=== PATIENT | male | born 1950 | race Two or more races ===

== ENCOUNTER 2019-03-01 13:42 | Emergency (ER) | payer MEDICARE, BC ==
[~2019-03-01] VITALS: Ht 170.2 cm; Wt 82.6 kg
[2019-03-01] MEDS ORDERED: BUPIVACAINE MPF 0.5% 30 ML VIAL. INJ STA (14:04)
[2019-03-01 14:07] VITALS: BP 121/79
--- NOTE | 2019-03-01 14:07 | PHYS DOC ---
Adult General Chief Complaint Chief Complaint: LACERATION/AVULSION HPI HPI Patient is a 69 year old male that presents after cutting his fifth digit on his left hand around 1:00 PM with a machine zipper trimmer. He has a laceration to the tip of his fifth digit. Rates his pain as 3 out of 10 in severity and sharp. Review of Systems Review of Systems Constitutional: Denies fever or chills [] Eyes: Denies change in visual acuity, redness, or eye pain [] HENT: Denies nasal congestion or sore throat [] Respiratory: Denies cough or shortness of breath [] Cardiovascular: No additional information not addressed in HPI [] GI: Denies abdominal pain, nausea, vomiting, bloody stools or diarrhea [] : Denies dysuria or hematuria [] Musculoskeletal: Denies back pain or joint pain [] Integument: Reports laceration to L 5th digit. Neurologic: Denies headache, focal weakness or sensory changes [] Endocrine: Denies polyuria or polydipsia [] Complete systems were reviewed and found to be within normal limits, except as documented in this note. Current Medications Current Medications Current Medications Medications (Trade) Dose Ordered Sig/Aniya Start Time Stop Time Status Last Admin Dose Admin Bupivacaine HCl (Sensorcaine Mpf 0.5%) 30 ml 1X STAT 03/01/19 14:04 03/01/19 14:12 DC Diphtheria/ Tetanus/Acell Pertussis (Boostrix) 0.5 ml ONCE ONCE 03/01/19 16:30 03/01/19 16:31 DC Neomycin/ Polymyxin/ Bacitracin (Triple Antibiotic Ointment) 1 pkt 1X STAT 03/01/19 16:32 03/01/19 16:33 DC Allergies Allergies Allergies Coded Allergies Type Severity Reaction Last Updated Verified No Known Drug Allergies 03/01/19 No Physical Exam Physical Exam Constitutional: Well developed, well nourished, no acute distress, non-toxic appearance. [] HENT: Normocephalic, atraumatic, bilateral external ears normal, oropharynx moist, no oral exudates, nose normal. [] Eyes: PERRLA, EOMI, conjunctiva normal, no discharge. [] Neck: Normal range of motion, no tenderness, supple, no stridor. [] Cardiovascular:Heart rate regular rhythm, no murmur [] Lungs & Thorax: Bilateral breath sounds clear to auscultation [] Abdomen: Bowel sounds normal, soft, no tenderness, no masses, no pulsatile masses. [] Skin: Laceration to left 5th digit that is a flap and has nail bed involvement. Back: No tenderness, no CVA tenderness. [] Extremities: No tenderness, no cyanosis, no clubbing, ROM intact, no edema. [] Neurologic: Alert and oriented X 3, normal motor function, normal sensory function, no focal deficits noted. [] Psychologic: Affect normal, judgement normal, mood normal. [] Current Patient Data Vital Signs Vital Signs Date Time Temp Pulse Resp B/P (MAP) Pulse Ox O2 Delivery O2 Flow Rate FiO2 03/01/19 14:07 98.2 108 20 121/79 (93) 95 Room Air 98.2 Lab Values Laboratory Tests Test 03/01/19 15:15 Glucose (Fingerstick) 188 mg/dL (70-99) H EKG EKG [] Radiology/Procedures Radiology/Procedures [][facility] [address] [place] [address] IMAGING REPORT Signed PATIENT: IESHA SANDERSON ACCOUNT: [id number] : 1950 LOCATION: ER AGE: 69 SEX: M EXAM STATUS: REG ER ORD. PHYSICIAN: BARRY CHAND APRN REASON: cut 5th digit with hedgetrimmer PROCEDURE: HAND LEFT 3V EXAM: Left hand, 3 views. HISTORY: Laceration. COMPARISON: None. FINDINGS: 3 views left hand are obtained. There is a comminuted fracture involving the tuft of the fifth distal phalanx with overlying soft tissue defect due to a laceration injury. No radiodense foreign body is seen. There are vascular calcifications. There is minimal spurring involving the first interphalangeal joint. IMPRESSION: Comminuted fracture of the distal tuft of the fifth distal cephalic with associated surrounding soft tissue laceration. Electronically signed by: Yodit Garcia MD (03/01/2019 2:21 PM) [facility] DICTATED and SIGNED BY: YODIT GARCIA MD DATE: 03/01/19 1423 Impressions: Indication: [] Procedure: The patient was placed in the appropriate position and anesthesia around the digital block using Buprivicaine to the 5th digit left hand. The area was then debrided with 500 mL of NS. The laceration was closed with 8 4-0 ethilon sutures. The wound area was then dressed with neosporin and splint. Total repaired wound length: 1.5 cm. Complications: Due to the trauma the finger did not completely approximate tog ether Course & Med Decision Making Course & Med Decision Making Pertinent Labs and Imaging studies reviewed. (See chart for details) Will get x-ray. X-ray showed Tuft fracture. Discussed with Dr. Vidal who agrees to see the patient in a week. Will suture the finger and give Tetanus. Will place on Augmentin. Dragon Disclaimer Dragon Disclaimer This electronic medical record was generated, in whole or in part, using a voice recognition dictation system. Departure Departure Impression: Primary Impression: Open fracture of tuft of distal phalanx of finger Additional Impression: Laceration Disposition: 01 HOME, SELF-CARE Condition: STABLE Referrals: MESSI WESLEY MD (PCP) ISAIAS VIDAL MD Patient Instructions: Finger Fracture (Phalangeal)-SportsMed, Fingertip Laceration, Laceration Care, Adult Additional Instructions: Thank you for visiting [facility]. We appreciate you trusting us with your care. If any additional problems come up don't hesitate to return to visit us. Please follow up with your primary care provider so they can plan additional care if needed and know about the problem that you had. If symptoms worsen come back to the Emergency Department. Any concerning symptoms that start such as chest pain, shortness of air, weakness or numbness on one side of the body, running high fevers or any other concerning symptoms return to the ER. Please be aware that diabetes can cause your sugars to fluctuate while you are sick. This can cause additional issues. Please check your sugars often to ensure they are staying in a safe range and if you are on insulin please take as instructed by your primary care doctor. If you have any questions about this please let us know or contact your primary care provider for additional in struction about taking your insulin while you are sick. If you get concerned regarding your sugar while at home please do not hesitate to come back to the ER. Please keep your wound dry, especially for the first 24 hours. After the first 24 hours you can wet the wound for a short time. Do not soak the wound or swim until the sutures have been removed. Please have the sutures removed in 7 days by your primary care doctor or return to ER for removal. Please keep the wound clean and change your bandage at least twice per day. You can use Neosporin on the wound to help reduce the chance of infection. If you notice signs of infection such as drainage from the wound (Pus), redness, increased pain or swelling return to ER for treatment. Please follow up with Dr. Vidal in a week. You have been prescribed an antibiotic today to help fight your infection. Please take all of the antibiotic as directed. If after 48 hours the infection is not improving, please return for more care. If the infection worsens, return to ER for additional care. Please fill your medications at any pharmacy and follow the prescription instructions. Scripts Hydrocodone/Apap 5-325 (NORCO 5-325 TABLET) 1 Each Tablet 1 TAB PO PRN Q6HRS PRN for PAIN for 3 Days, #10 TAB 0 Refills Prov: BARRY CHAND APRN 03/01/19 Amoxicillin/Potassium Clav (AUGMENTIN 875-125 TABLET) 1 Each Tablet 1 TAB PO BID for 7 Days, #14 TAB 0 Refills Prov: BARRY CHAND APRN 03/01/19 Problem Qualifiers BARRY CHAND APRN Mar 01, 2019 14:07
--- NOTE | 2019-03-01 14:23 | RAD ---
EXAM: Left hand, 3 views. HISTORY: Laceration. COMPARISON: None. FINDINGS: 3 views left hand are obtained. There is a comminuted fracture involving the tuft of the fifth distal phalanx with overlying soft tissue defect due to a laceration injury. No radiodense foreign body is seen. There are vascular calcifications. There is minimal spurring involving the first interphalangeal joint. IMPRESSION: Comminuted fracture of the distal tuft of the fifth distal cephalic with associated surrounding soft tissue laceration. Electronically signed by: Yodit Alex MD (03/01/2019 2:21 PM) [place] [id number]
[2019-03-01] MEDS ORDERED: DIPHTH,PERTUSS(ACELL),TET TOX 0.5 ML DISP.SYRIN. VAX IM ONE (16:30)
[2019-03-01] MEDS ORDERED: NEOMY/BACITR/POLYMYXIN OINT PACKET. TP STA (16:32)
[2019-03-01] MEDS ORDERED: HYDR-3164 PO (16:51)
[2019-03-01] MEDS ORDERED: AMOX1TAB61 PO (16:51)
== END 2019-03-01 17:13 | disposition home or self-care (01) ==
LOC: ER 13:42
DX: S62.637B Displaced fracture of distal phalanx of left little finger, initial encounter for open fracture (principal); W26.8XXA Contact with other sharp object(s), not elsewhere classified, initial encounter; Y93.89 Activity, other specified; Y92.89 Other specified places as the place of occurrence of the external cause; Y99.8 Other external cause status
CPT/HCPCS: 29130; 73130; 82962; 90471; 90715; 99285; J3490; 12001; 99284

== ENCOUNTER 2020-08-29 02:18 | Observation (INO) | payer MEDICARE, BC ==
[~2020-08-29] VITALS: Ht 170.2 cm; Wt 104.7 kg
[~2020-08-29 02:18] MED LIST: AMOX1TAB61 PO; HYDR-3164 PO
--- NOTE | 2020-08-29 02:39 | EKG ---
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
[2020-08-29 03:00] LABS: BASO # 0.1 x10^3/uL (0.0-0.2); BASO % 1 % (0-3); EOS # 0.2 x10^3/uL (0.0-0.7); EOS % 2 % (0-3); HEMATOCRIT 40.6 % (39.0-53.0); LYMPH # 2.7 x10^3/uL (1.0-4.8); LYMPH % 30 % (24-48); MEAN CORPUSCULAR HEMOGLOBIN 28 pg (25-35); MEAN CORPUSCULAR HGB CONC 34 g/dL (31-37); MEAN CORPUSCULAR VOLUME 82 fL (79-100); MONO # 0.8 x10^3/uL (0.0-1.1); MONO % 9 % (0-9); NEUT # 5.2 x10^3/uL (1.8-7.7); NEUT % 58 % (31-73); PLATELET COUNT 277 x10^3/uL (140-400); RED BLOOD COUNT 4.94 x10^6/uL (4.30-5.70); RED CELL DISTRIBUTION WIDTH 14.4 % (11.5-14.5)
[2020-08-29 03:12] LABS: CREATININE 1.4 mg/dL (0.7-1.3); GFR 49.8; POTASSIUM 4.2 mmol/L (3.5-5.1)
[2020-08-29 03:17] LABS: ALBUMIN 3.6 g/dL (3.4-5.0); ALBUMIN/GLOBULIN RATIO 1.1 (1.0-1.7); MAGNESIUM 1.7 mg/dL (1.8-2.4); TOTAL BILIRUBIN 0.4 mg/dL (0.2-1.0); TOTAL PROTEIN 6.9 g/dL (6.4-8.2)
[2020-08-29] MEDS ORDERED: MAGNESIUM SULFATE 1GM 100 ML IV ONE (03:30)
--- NOTE | 2020-08-29 04:26 | RAD ---
INDICATION: Reason: CHEST PAIN / Spl. Instructions: / History: COMPARISON: None. FINDINGS: Single view of chest obtained. Cardiac silhouette is unremarkable. No definite focal airspace consolidation. Degenerative changes sp ine. IMPRESSION: * No focal airspace consolidation or edema. Electronically signed by: Parth Pollock MD (08/29/2020 4:23 AM) [id number]
[2020-08-29] MEDS ORDERED: ONDANSETRON PF 4 MG/2 ML VIAL. IV PRN ×2 (04:45→11:45)
[2020-08-29] MEDS ORDERED: ASPIRIN 325 MG TABLET PO ONE (04:45)
--- NOTE | 2020-08-29 04:52 | PHYS DOC ---
Past Medical History Past Medical History: Diabetes-Type II, Diverticulitis, High Cholesterol, Hypertension Past Surgical History: No Surgical History Smoking Status: Never Smoker Alcohol Use: None General Adult EDM: Chief Complaint: CHEST PAIN HPI: HPI: Patient is a 70 year old male who presented to ER due to substernal chest pain off and on for 3 days. Patient denies any nausea vomiting, no cough, no fever. Patient denies any trouble breathing. Patient has history of hypertension and diabetic. Patient denies any history of coronary ARTERY disease. Patient could not sleep tonight due to the chest pain so he came in here for evaluation. Patient denied COVID-19 infection. Patient had Covid vaccines Already. Review of Systems: Review of Systems: Constitutional: Denies fever or chills. [] Eyes: Denies change in visual acuity. [] HENT: Denies nasal congestion or sore throat. [] Respiratory: Denies cough or shortness of breath. [] Cardiovascular: Positive chest pain, no edema GI: Denies abdominal pain, nausea, vomiting, bloody stools or diarrhea. [] : Denies dysuria. [] Musculoskeletal: Denies back pain or joint pain. [] Integument: Denies rash. [] Neurologic: Denies headache, focal weakness or sensory changes. [] Endocrine: Denies polyuria or polydipsia. [] Lymphatic: Denies swollen glands. [] Psychiatric: Denies depression or anxiety. [] Heart Score: C/O Chest Pain: Yes HEART Score for Chest Pain: HEART Score for Chest Pain Response (Comments) Value History Moderately Suspicious 1 ECG Normal 0 Age > 65 2 Risk Factors 1 or 2 Risk Factors 1 Troponin < Normal Limit 0 Total 4 Risk Factors: Risk Factors: DM, Current or recent (<one month) smoker, HTN, HLP, family history of CAD, obesity. Risk Scores: Score 0 - 3: 2.5% MACE over next 6 weeks - Discharge Home Score 4 - 6: 20.3% MACE over next 6 weeks - Admit for Clinical Observation Score 7 - 10: 72.7% MACE over next 6 weeks - Early Invasive Strategies Current Medications: Current Medications Medications (Trade) Dose Ordered Sig/Aniya Start Time Stop Time Status Last Admin Dose Admin Aspirin (Fei Aspirin) 325 mg 1X ONCE 08/29/20 04:45 08/29/20 04:48 DC Magnesium Sulfate/ Dextrose 100 ml @ 100 mls/hr 1X ONCE 08/29/20 03:30 08/29/20 04:29 DC 08/29/20 04:18 100 MLS/HR Ondansetron HCl (Zofran) 4 mg PRN Q8HRS PRN 08/29/20 04:45 08/30/20 04:44 Allergies: Allergies: Allergies Coded Allergies Type Severity Reaction Last Updated Verified No Known Drug Allergies 03/01/19 No Physical Exam: PE: Constitutional: Well developed, well nourished, no acute distress, non-toxic appearance. [] HENT: Normocephalic, atraumatic, bilateral external ears normal, oropharynx moist, no oral exudates, nose normal. [] Eyes: PERRLA, EOMI, conjunctiva normal, no discharge. [] Neck: Normal range of motion, no tenderness, supple, no stridor. [] Cardiovascular:Heart rate regular rhythm, no murmur [] Lungs & Thorax: Bilateral breath sounds clear to auscultation [] Abdomen: Bowel sounds normal, soft, no tenderness, no masses, no pulsatile masses. [] Skin: Warm, dry, no erythema, no rash. [] Back: No tenderness, no CVA tenderness. [] Extremities: No tenderness, no cyanosis, no clubbing, ROM intact, no edema. [] Neurologic: Alert and oriented X 3, normal motor function, normal sensory function, no focal deficits noted. [] Psychologic: Affect normal, judgement normal, mood normal. [] Current Patient Data: Labs: Laboratory Tests Test 08/29/20 02:50 White Blood Count 9.0 x10^3/uL (4.0-11.0) Red Blood Count 4.94 x10^6/uL (4.30-5.70) Hemoglobin 14.0 g/dL (13.0-17.5) Hematocrit 40.6 % (39.0-53.0) Mean Corpuscular Volume 82 fL (79-100) Mean Corpuscular Hemoglobin 28 pg (25-35) Mean Corpuscular Hemoglobin Concent 34 g/dL (31-37) Red Cell Distribution Width 14.4 % (11.5-14.5) Platelet Count 277 x10^3/uL (140-400) Neutrophils (%) (Auto) 58 % (31-73) Lymphocytes (%) (Auto) 30 % (24-48) Monocytes (%) (Auto) 9 % (0-9) Eosinophils (%) (Auto) 2 % (0-3) Basophils (%) (Auto) 1 % (0-3) Neutrophils # (Auto) 5.2 x10^3/uL (1.8-7.7) Lymphocytes # (Auto) 2.7 x10^3/uL (1.0-4.8) Monocytes # (Auto) 0.8 x10^3/uL (0.0-1.1) Eosinophils # (Auto) 0.2 x10^3/uL (0.0-0.7) Basophils # (Auto) 0.1 x10^3/uL (0.0-0.2) Sodium Level 143 mmol/L (136-145) Potassium Level 4.2 mmol/L (3.5-5.1) Chloride Level 105 mmol/L (98-107) Carbon Dioxide Level 29 mmol/L (21-32) Anion Gap 9 (6-14) Blood Urea Nitrogen 13 mg/dL (8-26) Creatinine 1.4 mg/dL (0.7-1.3) H Estimated GFR (Cockcroft-Gault) 49.8 BUN/Creatinine Ratio 9 (6-20) Glucose Level 204 mg/dL (70-99) H Calcium Level 9.0 mg/dL (8.5-10.1) Magnesium Level 1.7 mg/dL (1.8-2.4) L Total Bilirubin 0.4 mg/dL (0.2-1.0) Aspartate Amino Transferase (AST) 17 U/L (15-37) Alanine Aminotransferase (ALT) 30 U/L (16-63) Alkaline Phosphatase 62 U/L (46-116) Troponin I Quantitative < 0.017 ng/mL (0.000-0.055) YV-Rbi-Y-Type Natriuretic Peptide 16 pg/mL (0-124) Total Protein 6.9 g/dL (6.4-8.2) Albumin 3.6 g/dL (3.4-5.0) Albumin/Globulin Ratio 1.1 (1.0-1.7) Lipase 237 U/L (73-393) Laboratory Tests 08/29/20 02:50 Laboratory Tests 08/29/20 02:50 Vital Signs: Vital Signs Date Time Temp Pulse Resp B/P (MAP) Pulse Ox O2 Delivery O2 Flow Rate FiO2 08/29/20 04:28 90 121/78 (92) 97 Room Air 08/29/20 02:20 99.1 20 99.1 EKG: EKG: EKG was done at 228, heart rate 111 bpm, sinus tachycardia, normal axis, no ST segment elevation. Radiology/Procedures: Radiology/Procedures: [][facility] [address] [place] [address] IMAGING REPORT Signed PATIENT: IESHA SANDERSON ACCOUNT: [id number] : 1950 LOCATION: ER AGE: 70 SEX: M EXAM STATUS: REG ER ORD. PHYSICIAN: DENA MASSEY DO REASON: CHEST PAIN PROCEDURE: PORTABLE CHEST 1V INDICATION: Reason: CHEST PAIN / Spl. Instructions: / History: COMPARISON: None. FINDINGS: Single view of chest obtained. Cardiac silhouette is unremarkable. No definite focal airspace consolidation. Degenerative changes spine. IMPRESSION: * No focal airspace consolidation or edema. Electronically signed by: Dominguez Cottrell MD (08/29/2020 4:23 AM) [id number] DICTATED and SIGNED BY: DOMINGUEZ COTTRELL MD DATE: 08/29/20 [id number] 0 Course & Med Decision Making: Course & Med Decision Making Pertinent Labs and Imaging studies reviewed. (See chart for details) Patient is a 70-year-old male who present to ER due to substernal chest pain, EKG and cardiac enzymes normal so far, will admit him to hospital for observation. Discussed with Dr. Stokes who agrees to admit the patient. Dragon Disclaimer: Dragon Disclaimer: This electronic medical record was generated, in whole or in part, using a voice recognition dictation system. Departure Departure Impression: Primary Impression: Chest pain Additional Impression: Hypomagnesemia syndrome Disposition: ADMITTED INPATIENT Admitting Physician: TIAS (DR. STOKES) Condition: STABLE Referrals: MESSI WESLEY MD (PCP) DENA MASSEY DO August 29, 2020 04:52
[2020-08-29] MEDS ORDERED: GLIM4TAB8 PO (05:44)
[2020-08-29] MEDS ORDERED: METF10007 PO (05:44)
[2020-08-29] MEDS ORDERED: MELA10TA7 PO (05:45)
[2020-08-29] MEDS ORDERED: ATOR20TA58 PO (05:45)
--- NOTE | 2020-08-29 06:48 | EKG ---
[facility] [address] [place] [address] Test Date: 2020-08-29 Test Time: 04:06:12 Pat Name: IESHA SANDERSON Department: Room: Gender: Small Engine Mechanic: : 1950 Requested By: DENA MASSEY Order Number: [id number] Reading MD: Measurements Intervals [place] Rate: 91 P: 36 WV: 138 QRS: -4 QRSD: 82 T: 35 QT: 326 QTc: 402 Interpretive Statements SINUS RHYTHM LEFTWARD AXIS OTHERWISE NORMAL ECG RI6.02 No previous ECG available for comparison
[2020-08-29 07:00] VITALS: BP 148/76
--- NOTE | 2020-08-29 08:56 | PDOC1 ---
History and Physical Date of Admission Date of Admission DATE: 08/29/20 TIME: 08:55 Identification/Chief Complaint Chief Complaint chest pain, persistent x 3 days History of Present Illness History of Present Illness 70 year old male who presented to ER due to substernal chest pain off and on for 3 days. Patient denies any nausea vomiting, no cough, no fever. denies trouble breathing. has history of hypertension and diabetes denies any history of coronary disease. Patient could not sleep due to the chest pain so he came to ER . had Covid vaccines x2 ECHO pending. His last stress test was decades ago. No hx of CAD, VTE. No hx of arrhythmias troponin neg x 3 CR 1.4 DENIES exertional chest pain, but is not very physically active Past Medical History Past Medical History Past Medical History: Diabetes-Type II, Diverticulitis, High Cholesterol, Hypertension Past Surgical History: No Surgical History Smoking Status: Never Smoker Alcohol Use: None FHX OBESITY Cardiovascular: HTN, Hyperlipidemia Endocrine: Diabetes Family History Family History: High Cholestrol, Hypertension Social History Smoke: Quit ALCOHOL: none Drugs: None Current Problem List Problem List Problems Medical Problems: (1) Chest pain Status: Acute (2) Hypomagnesemia syndrome Status: Acute Current Medications Current Medications Current Medications Magnesium Sulfate/ Dextrose 100 ml @ 100 mls/hr 1X ONCE IV Last administered on 08/29/20at 04:18; Start 08/29/20 at 03:30; Stop 08/29/20 at 04:29; Status DC Aspirin (Fei Aspirin) 325 mg 1X ONCE PO Last administered on 08/29/20at 04:53; Start 08/29/20 at 04:45; Stop 08/29/20 at 04:48; Status DC Ondansetron HCl (Zofran) 4 mg PRN Q8HRS PRN IV NAUSEA/VOMITING; Start 08/29/20 at 04:45; Stop 08/30/20 at 04:44 Active Scripts Active Reported Melatonin 10 Mg Tab.rapdis 1 Tab PO QHS 30 Days Atorvastatin Calcium 20 Mg Tablet 20 Mg PO HS Glimepiride 4 Mg Tablet 1 Tab PO DAILY Metformin Hcl 1,000 Mg Tablet 1,000 Mg PO BIDWMEALS Allergies Allergies: Coded Allergies: No Known Drug Allergies (Unverified , 03/01/19) ROS Review of System 14 pt ros otherwise neg General: No: Chills, Night Sweats, Fatigue, Malaise, Appetite, Other PSYCHOLOGICAL ROS: No: Anxiety, Behavioral Disorder, Concentration difficultie, Decreased libido, Depression, Disorientation, Hallucinations, Hostility, Irritablity, Memory difficulties, Mood Swings, Obsessive thoughts, Physical abuse, Sexual abuse, Sleep disturbances, Suicidal ideation, Other Eyes: No Blurry vision, No Decreased vision, No Double vision, No Dry eyes, No Excessive tearing, No Eye Pain, No Itchy Eyes, No Loss of vision, No Photophobia, No Scotomata, No Uses contacts, No Uses glasses, No Other HEENT: No: Heacaches, Visual Changes, Hearing change, Nasal congestion, Nasal discharge, Oral lesions, Sinus pain, Sore Throat, Epistaxis, Sneezing, Snoring, Tinnitus, Vertigo, Vocal changes, Other ALLERGY AND IMMUNOLOGY: No: Hives, Insect Bite Sensitivity, Itchy/Watery Eyes, Nasal Congestion, Post Nasal Drip, Seasonal Allergies, Other Hematological and Lymphatic: No: Bleeding Problems, Blood Clots, Blood Transfusions, Brusing, Night Sweats, Pallor, Swollen Lymph Nodes, Other ENDOCRINE: No: Breast Changes, Galactorrhea, Hair Pattern Changes, Hot Flashes, Malaise/lethargy, Mood Swings, Palpitations, Polydipsia/polyuria, Skin Changes, Temperature Intolerance, Unexpected Weight Changes, Other Breast: No New/Changing Breast Lumps, No Nipple changes, No Nipple discharge, No Other Respiratory: No: Cough, Hemoptysis, Orthopnea, Pleuritic Pain, Shortness of breath, SOB with excertion, Sputum Changes, Stridor, Tachypnea, Wheezing, Other Cardiovascular: yes Chest Pain; No Palpitations, No Orthopnea, No Paroxysmal Noc. Dyspnea, No Edema, No Lt Headedness, No Other Gastrointestinal: No Nausea, No Vomiting, No Abdominal Pain, No Diarrhea, No Constipation, No Melena, No Hematochezia, No Other Genitourinary: No Dysuria, No Frequency, No Incontinence, No Hematuria, No Retention, No Discharge, No Urgency, No Pain, No Flank Pain, No Other, No , No , No , No , No , No , No Musculoskeletal: No Gait Disturbance, No Joint Pain, No Joint Stiffness, No Joint Swelling, No Muscle Pain, No Muscular Weakness, No Pain In:, No Swelling In:, No Other Neurological: No Behavorial Changes, No Bowel/Bladder ControlChng, No Confusion, No Dizziness, No Gait Disturbance, No Headaches, No Impaired Coord/balance, No Memory Loss, No Numbness/Tingling, No Seizures, No Speech Problems, No Tremors, No Visual Changes, No Weakness, No Other Skin: No Dry Skin, No Eczema, No Hair Changes, No Lumps, No Mole Changes, No Mottling, No Nail Changes, No Pruritus, No Rash, No Skin Lesion Changes, No Other, No Acne Physical Exam General: Alert, Oriented X3, Cooperative, No acute distress HEENT: Atraumatic, PERRLA, EOMI, Mucous membr. moist/pink Lungs: Clear to auscultation, Normal air movement Heart: RRR, no thrills, no gallops Breasts: Not examined Abdomen: Normal bowel sounds, Soft, No tenderness, No hepatosplenomegaly, No masses Rectal Exam: not examined PELVIC: Examination not indicated Extremities: No clubbing, No cyanosis, No edema Skin: No breakdown Neuro: Normal speech, Strength at 5/5 X4 ext, Sensation intact, Cranial nerves 3-12 NL Psych/Mental Status: Mental status NL, Mood NL Vitals Vitals Vital Signs Date Time Temp Pulse Resp B/P (MAP) Pulse Ox O2 Delivery O2 Flow Rate FiO2 08/29/20 07:00 97.9 112 18 148/76 (100) 96 Room Air 97.9 Labs Labs Laboratory Tests Test 08/29/20 02:50 08/29/20 04:12 White Blood Count 9.0 x10^3/uL (4.0-11.0) Red Blood Count 4.94 x10^6/uL (4.30-5.70) Hemoglobin 14.0 g/dL (13.0-17.5) Hematocrit 40.6 % (39.0-53.0) Mean Corpuscular Volume 82 fL (79-100) Mean Corpuscular Hemoglobin 28 pg (25-35) Mean Corpuscular Hemoglobin Concent 34 g/dL (31-37) Red Cell Distribution Width 14.4 % (11.5-14.5) Platelet Count 277 x10^3/uL (140-400) Neutrophils (%) (Auto) 58 % (31-73) Lymphocytes (%) (Auto) 30 % (24-48) Monocytes (%) (Auto) 9 % (0-9) Eosinophils (%) (Auto) 2 % (0-3) Basophils (%) (Auto) 1 % (0-3) Neutrophils # (Auto) 5.2 x10^3/uL (1.8-7.7) Lymphocytes # (Auto) 2.7 x10^3/uL (1.0-4.8) Monocytes # (Auto) 0.8 x10^3/uL (0.0-1.1) Eosinophils # (Auto) 0.2 x10^3/uL (0.0-0.7) Basophils # (Auto) 0.1 x10^3/uL (0.0-0.2) Sodium Level 143 mmol/L (136-145) Potassium Level 4.2 mmol/L (3.5-5.1) Chloride Level 105 mmol/L (98-107) Carbon Dioxide Level 29 mmol/L (21-32) Anion Gap 9 (6-14) Blood Urea Nitrogen 13 mg/dL (8-26) Creatinine 1.4 mg/dL (0.7-1.3) Estimated GFR (Cockcroft-Gault) 49.8 BUN/Creatinine Ratio 9 (6-20) Glucose Level 204 mg/dL (70-99) Calcium Level 9.0 mg/dL (8.5-10.1) Magnesium Level 1.7 mg/dL (1.8-2.4) Total Bilirubin 0.4 mg/dL (0.2-1.0) Aspartate Amino Transf (AST/SGOT) 17 U/L (15-37) Alanine Aminotransferase (ALT/SGPT) 30 U/L (16-63) Alkaline Phosphatase 62 U/L (46-116) Troponin I Quantitative < 0.017 ng/mL (0.000-0.055) < 0.017 ng/mL (0.000-0.055) YD-Xtj-P-Type Natriuretic Peptide 16 pg/mL (0-124) Total Protein 6.9 g/dL (6.4-8.2) Albumin 3.6 g/dL (3.4-5.0) Albumin/Globulin Ratio 1.1 (1.0-1.7) Lipase 237 U/L (73-393) Laboratory Tests Test 08/29/20 02:50 08/29/20 04:12 White Blood Count 9.0 x10^3/uL (4.0-11.0) Red Blood Count 4.94 x10^6/uL (4.30-5.70) Hemoglobin 14.0 g/dL (13.0-17.5) Hematocrit 40.6 % (39.0-53.0) Mean Corpuscular Volume 82 fL (79-100) Mean Corpuscular Hemoglobin 28 pg (25-35) Mean Corpuscular Hemoglobin Concent 34 g/dL (31-37) Red Cell Distribution Width 14.4 % (11.5-14.5) Platelet Count 277 x10^3/uL (140-400) Neutrophils (%) (Auto) 58 % (31-73) Lymphocytes (%) (Auto) 30 % (24-48) Monocytes (%) (Auto) 9 % (0-9) Eosinophils (%) (Auto) 2 % (0-3) Basophils (%) (Auto) 1 % (0-3) Neutrophils # (Auto) 5.2 x10^3/uL (1.8-7.7) Lymphocytes # (Auto) 2.7 x10^3/uL (1.0-4.8) Monocytes # (Auto) 0.8 x10^3/uL (0.0-1.1) Eosinophils # (Auto) 0.2 x10^3/uL (0.0-0.7) Basophils # (Auto) 0.1 x10^3/uL (0.0-0.2) Sodium Level 143 mmol/L (136-145) Potassium Level 4.2 mmol/L (3.5-5.1) Chloride Level 105 mmol/L (98-107) Carbon Dioxide Level 29 mmol/L (21-32) Anion Gap 9 (6-14) Blood Urea Nitrogen 13 mg/dL (8-26) Creatinine 1.4 mg/dL (0.7-1.3) Estimated GFR (Cockcroft-Gault) 49.8 BUN/Creatinine Ratio 9 (6-20) Glucose Level 204 mg/dL (70-99) Calcium Level 9.0 mg/dL (8.5-10.1) Magnesium Level 1.7 mg/dL (1.8-2.4) Total Bilirubin 0.4 mg/dL (0.2-1.0) Aspartate Amino Transf (AST/SGOT) 17 U/L (15-37) Alanine Aminotransferase (ALT/SGPT) 30 U/L (16-63) Alkaline Phosphatase 62 U/L (46-116) Troponin I Quantitative < 0.017 ng/mL (0.000-0.055) < 0.017 ng/mL (0.000-0.055) SW-Xjv-A-Type Natriuretic Peptide 16 pg/mL (0-124) Total Protein 6.9 g/dL (6.4-8.2) Albumin 3.6 g/dL (3.4-5.0) Albumin/Globulin Ratio 1.1 (1.0-1.7) Lipase 237 U/L (73-393) Images Images INDICATION: Reason: CHEST PAIN / Spl. Instructions: / History: COMPARISON: None. FINDINGS: Single view of chest obtained. Cardiac silhouette is unremarkable. No definite focal airspace consolidation. Degenerative changes spine. IMPRESSION: * No focal airspace consolidation or edema. Electronically signed by: Parth Pollock MD (08/29/2020 4:23 AM) [id number] DICTATED and SIGNED BY: PARTH POLLOCK MD DATE: 08/29/20 [id number] VTE Prophylaxis Ordered VTE Prophylaxis Devices: Yes VTE Pharmacological Prophylaxi: Yes Assessment/Plan Assessment/Plan Impression: Chest pain, risk factors age, diabetes, remote smoker, HTN MORBID OBESITY HTN Diabetes Hypomagnesemia syndrome remote tobacco abuse ckd address via PCP SOON follow up ADMITTED== cvc bed trend troponin i cardiology consult TTE, TSH, FLP home statin and DM2 regimen MPI as an outpt for further risks stratification ACCUCHECKS, A1C D/W RN DVT PROPHYLXIS Justifications for Admission Other Justification FRANK PRATER MD August 29, 2020 08:56
--- NOTE | 2020-08-29 10:33 | PDOC2 ---
CHRIS FLORENCE SUPPLIER QUALITY 08/29/20 1033: CARDIAC CONSULT DATE OF CONSULT Date of Consult DATE: 08/29/20 TIME: 10:24 REASON FOR CONSULT Reason for Consult: Chest pain REFERRING PHYSICIAN Referring Physician: Germán SOURCE Source: Chart review HISTORY OF PRESENT ILLNESS HISTORY OF PRESENT ILLNESS This is a pleasant 70 yo male admitted for complains of chest pain. Reports that is midchest and burning. He has been having heartburn lately and took some alkaseltzer for it. He also has been having a lot of runny nose due to allergies. No changes to his activity tolerance. Denies any dizziness , recent falls or injury. No radiating discomfort from his chest pain. No SOA. His last stress test was decades ago. No hx of CAD, VTE. No hx of arrhythmias. He takes pills for HLP and DM2 and takes daily baby ASA. No covid-19 exposure. He has been clearing his throat a lot as well. No fever or chills. His 2nd dose for covid-19 vaccine was 07/27/2020. PAST MEDICAL HISTORY Cardiovascular: Hyperlipidemia Pulmonary: No pertinent hx CENTRAL NERVOUS SYSTEM: Other (No pertinent history) GI: No pertinent hx Heme/Onc: No pertinent hx Hepatobiliary: No pertinent hx Psych: No pertinent hx Musculoskeletal: Osteoarthritis Rheumatologic: No pertinent hx Infectious disease: No pertinent hx ENT: No pertinent hx Renal/: No pertinent hx Endocrine: Diabetes Dermatology: No pertinent hx PAST SURGICAL HISTORY Past Surgical History: Appendectomy FAMILY HISTORY Family History: Coronary Artery Disease (father [place] in his 70s) SOCIAL HISTORY Smoke: Quit (remotely) ALCOHOL: none Drugs: None Lives: with Family CURRENT MEDICATIONS CURRENT MEDICATIONS Current Medications Medications (Trade) Dose Ordered Sig/Aniya Route PRN Reason Start Time Stop Time Status Last Admin Dose Admin Magnesium Sulfate/ Dextrose 100 ml @ 100 mls/hr 1X ONCE IV 08/29/20 03:30 08/29/20 04:29 DC 08/29/20 04:18 Aspirin (Fei Aspirin) 325 mg 1X ONCE PO 08/29/20 04:45 08/29/20 04:48 DC 08/29/20 04:53 ALLERGIES ALLERGIES: Coded Allergies: No Known Drug Allergies (Unverified , 03/01/19) ROS Review of System 14 point ROS evaluated with pertinent positives noted per HPI PHYSICAL EXAM General: Alert, Oriented X3, Cooperative, No acute distress HEENT: Atraumatic, Mucous membr. moist/pink Lungs: Clear to auscultation, Normal air movement Heart: Regular rate (SR), Normal S1, Normal S2, No murmurs Abdomen: Soft, No tenderness Extremities: No cyanosis, No edema Skin: No breakdown, No significant lesion Neuro: Normal speech, Sensation intact Psych/Mental Status: Mental status NL, Mood NL MUSCULOSKELETAL: Osteoarthritic changes both hands VITALS/I&O VITALS/I&O: Vital Signs Date Time Temp Pulse Resp B/P (MAP) Pulse Ox O2 Delivery O2 Flow Rate FiO2 08/29/20 07:00 97.9 112 18 148/76 (100) 96 Room Air 97.9 LABS Lab: Laboratory Tests Test 08/29/20 02:50 08/29/20 04:12 08/29/20 08:35 White Blood Count 9.0 x10^3/uL (4.0-11.0) Red Blood Count 4.94 x10^6/uL (4.30-5.70) Hemoglobin 14.0 g/dL (13.0-17.5) Hematocrit 40.6 % (39.0-53.0) Mean Corpuscular Volume 82 fL (79-100) Mean Corpuscular Hemoglobin 28 pg (25-35) Mean Corpuscular Hemoglobin Concent 34 g/dL (31-37) Red Cell Distribution Width 14.4 % (11.5-14.5) Platelet Count 277 x10^3/uL (140-400) Neutrophils (%) (Auto) 58 % (31-73) Lymphocytes (%) (Auto) 30 % (24-48) Monocytes (%) (Auto) 9 % (0-9) Eosinophils (%) (Auto) 2 % (0-3) Basophils (%) (Auto) 1 % (0-3) Neutrophils # (Auto) 5.2 x10^3/uL (1.8-7.7) Lymphocytes # (Auto) 2.7 x10^3/uL (1.0-4.8) Monocytes # (Auto) 0.8 x10^3/uL (0.0-1.1) Eosinophils # (Auto) 0.2 x10^3/uL (0.0-0.7) Basophils # (Auto) 0.1 x10^3/uL (0.0-0.2) Sodium Level 143 mmol/L (136-145) Potassium Level 4.2 mmol/L (3.5-5.1) Chloride Level 105 mmol/L (98-107) Carbon Dioxide Level 29 mmol/L (21-32) Anion Gap 9 (6-14) Blood Urea Nitrogen 13 mg/dL (8-26) Creatinine 1.4 mg/dL (0.7-1.3) H Estimated GFR (Cockcroft-Gault) 49.8 BUN/Creatinine Ratio 9 (6-20) Glucose Level 204 mg/dL (70-99) H Calcium Level 9.0 mg/dL (8.5-10.1) Magnesium Level 1.7 mg/dL (1.8-2.4) L Total Bilirubin 0.4 mg/dL (0.2-1.0) Aspartate Amino Transferase (AST) 17 U/L (15-37) Alanine Aminotransferase (ALT) 30 U/L (16-63) Alkaline Phosphatase 62 U/L (46-116) Troponin I Quantitative < 0.017 ng/mL (0.000-0.055) < 0.017 ng/mL (0.000-0.055) < 0.017 ng/mL (0.000-0.055) FB-Xif-N-Type Natriuretic Peptide 16 pg/mL (0-124) Total Protein 6.9 g/dL (6.4-8.2) Albumin 3.6 g/dL (3.4-5.0) Albumin/Globulin Ratio 1.1 (1.0-1.7) Lipase 237 U/L (73-393) Laboratory Tests 08/29/20 02:50 Laboratory Tests 08/29/20 02:50 ASSESSMENT/PLAN ASSESSMENT/PLAN 1. Atypical CP: features GERD exacerbation, doubt ACS 2. DM2 3. HLP 4. Obesity 5. Allergic rhinitis 6. Possible CKD Recommendations 1. Diet modification discussed. Start PPI 2. TTE, TSH, FLP 3. Continue home statin and DM2 regimen 4. TTE today. MPI as an outpt for further risks stratification 5. Encouraged allergy control with OTC antihistamines. VINCENT TODD MD 08/29/20 2423: CARDIAC CONSULT ASSESSMENT/PLAN ASSESSMENT/PLAN Patient seen and examined. Agree with PARALEGAL ASSISTANT's assessment and plan. Chest pain with atypical features. Myocardial infarction has been ruled out. 2D echo showed normal LV function without any wall motion abnormalities. Plan for outpatient ischemic evaluation Thank you for your consult CHRIS FLORENCE APRN August 29, 2020 10:33 VINCENT TODD MD August 29, 2020 17:39
[2020-08-29] MEDS ORDERED: PANTOPRAZOLE 40 MG TABLET.DR. PO ONE (10:45)
[2020-08-29 10:46] LABS: CHOLESTEROL/HDL RATIO 4.2
[2020-08-29 11:00] VITALS: BP 137/76
[2020-08-29] MEDS ORDERED: GLIMEPIRIDE 2 MG TABLET. PO SCH (11:30)
[2020-08-29] MEDS ORDERED: ALBUTEROL SULFATE 2.5 MG/3 ML NEBU. NEB PRN (11:45)
[2020-08-29] MEDS ORDERED: SODIUM PHOSPHATES 19/7GM 133 ML ENEMA. PR PRN (11:45)
[2020-08-29] MEDS ORDERED: ZOLPIDEM 5 MG TABLET. PO PRN (11:45)
[2020-08-29] MEDS ORDERED: MAG HYDROX/ALUMINUM HYD/SIMETH 30 ML ORAL.SUSP PO PRN (11:45)
[2020-08-29] MEDS ORDERED: 0.9 % SODIUM CHLORIDE 10 ML DISP.SYRIN. IV PRN (11:45)
[2020-08-29] MEDS ORDERED: guaiFENesin ORAL 200 MG/10 ML LIQUID. PO PRN (11:45)
[2020-08-29] MEDS ORDERED: DOCUSATE SODIUM 100 MG CAPSULE. PO PRN (11:45)
[2020-08-29] MEDS ORDERED: DEXTROSE 50% 25 GM / 50ML DISP.SYRIN. IV PRN (11:45)
[2020-08-29] MEDS: metFORMIN 500 MG TABLET PO SCH ×2 (13:01→17:00)
[2020-08-29] MEDS: INSULIN LISPRO 300 UNITS/3 ML VIAL. SQ SCH ×2 (13:02→17:00)
--- NOTE | 2020-08-29 14:11 | NUR ---
SS following for discharge planning. SS reviewed pt chart and discussed with pt RN. Pt is from home with spouse and is currently on room air. Cardiology consulted. ECHO ordered. SS will continue to follow for discharge planning.
[2020-08-29 15:00] VITALS: BP 131/82
[2020-08-29] MEDS ORDERED: ENOXAPARIN 40 MG/0.4 ML SYRINGE. SQ SCH (16:00)
--- NOTE | 2020-08-29 16:50 | CARD ---
MR#: [id number] Date of Study: 08/29/2020 Ordering Physician: CHRIS FLORENCE, Referring Physician: CHRIS FLORENCE, Tech: Nirmala Hernandez, [facility]UST APPROVED REPORT EXAM: Two-dimensional and M-mode echocardiogram with Doppler and color Doppler. Other Information Quality : AverageHR: 91bpm INDICATION Chest Pain RISK FACTORS Hyperlipidemia Diabetes 2D DIMENSIONS RVDd3.6 (2.9-3.5cm)Left Atrium(2D)3.0 (1.6-4.0cm) IVSd1.0 (0.7-1.1cm)Aortic Root(2D)3.4 (2.0-3.7cm) LVDd4.9 (3.9-5.9cm)LVOT Diameter2.1 (1.8-2.4cm) PWd1.0 (0.7-1.1cm)LVDs3.3 (2.5-4.0cm) FS (%) 33.4 %SV70.1 ml Aortic Valve AoV Peak Donaldo.126.4cm/sAoV VTI21.3cm AO Peak GR.6.4mmHgLVOT Peak Donaldo.92.6cm/s LVOT VTI 16.76cmAO Mean GR.4mmHg NELSON (VMAX)1.80bo1JWM (VTI)2.74cm2 Mitral Valve MV E Hfrwaway60.6cm/sMV DECEL [id number] MV A Qbuhdocx80.4cm/sMV CRY20uo E/A Ratio0.8MVA (PHT)2.60cm2 TDI E/Lateral E'8.6E/Medial E'11.1 Tricuspid Valve TR P. Iusvgitd470de/sRAP SOPDPKBM4adEa TR Peak Gr.60qkZwBWJA69ttGm Pulmonary Vein S1 Hqgraczl35.5cm/sD2 Vbgfaybf41.3cm/s PVa [id number] LEFT VENTRICLE The left ventricle is normal size. There is normal left ventricular wall thickness. The left ventricu lar systolic function is normal. The Ejection Fraction is 50-55%. There is normal LV segmental wall m otion. Transmitral Doppler flow pattern is Grade I-abnormal relaxation pattern. RIGHT VENTRICLE The right ventricle is mildly dilated. There is normal right ventricular wall thickness. The right ve ntricular systolic function is normal. ATRIA The left atrium size is normal. The right atrium size is normal. The interatrial septum is intact wit h no evidence for an atrial septal defect or patent foramen ovale as noted on 2-D or Doppler imaging. AORTIC VALVE The aortic valve is normal in structure and function. Doppler and Color Flow revealed trace aortic re gurgitation. There is no significant aortic valvular stenosis. Calculated aortic valve area is 2.44 c m2 with maximum pressure gradient of 8 mmHg and mean pressure gradient of 5 mmHg. MITRAL VALVE The mitral valve is normal in structure and function. There is no evidence of mitral valve prolapse. There is no mitral valve stenosis. Doppler and Color-flow revealed trace mitral regurgitation. TRICUSPID VALVE The tricuspid valve is normal in structure and function. Doppler and Color Flow revealed trace tricus pid regurgitation with an estimated PAP of 24 mmHg. There is no tricuspid valve stenosis. PULMONIC VALVE The pulmonic valve is not well visualized. Doppler and Color Flow revealed trace pulmonic valvular re gurgitation. GREAT VESSELS The aortic root is normal in size. The ascending aorta is mldly dilated measuring 3.6 cm. The IVC was not visualized. PERICARDIAL EFFUSION There is no evidence of significant pericardial effusion. Critical Notification Critical Value: No <Conclusion> The left ventricle is normal size. The left ventricular systolic function is normal. The Ejection Fraction is 50-55%. There is normal LV segmental wall motion. Doppler and Color Flow revealed trace aortic regurgitation. There is no significant aortic valvular stenosis. Doppler and Color-flow revealed trace mitral regurgitation. Doppler and Color Flow revealed trace tricuspid regurgitation with an estimated PAP of 24 mmHg. The ascending aorta is mldly dilated measuring 3.6 cm. Signed by : Juventino Robison MD Electronically Approved : 08/29/2020 16:49:35
[2020-08-29] MEDS ORDERED: PANT40TA77 PO (17:47)
--- NOTE | 2020-08-29 17:55 | NUR ---
OK to discharge per cardiology. Pgd primary and recvd telephone order to discharge home
--- NOTE | 2020-08-29 18:46 | NUR ---
Discharge Note: IESHA SANDERSON [facility] Discharge instructions and discharge home medications reviewed with Patient and a copy given. All questions have been answered and understanding verbalized. The following instructions and handouts were given: discharge instructions, follow up apppointment, called in prescription Discontinued lines and drains: Peripheral IV intact. Patient discharged to Home or Self Care with Spouse via Ambulated
[2020-08-29] MEDS ORDERED: ATORVASTATIN CALCIUM 20 MG TABLET PO SCH (21:00)
[2020-08-29] MEDS ORDERED: NON FORMULARY ITEM (Melatonin 1 TAB) PO SCH (21:00)
[2020-08-30 00:13] LABS: HEMOGLOBIN A1C 7.5 % (4.8-5.6)
[2020-08-30] MEDS ORDERED: PANTOPRAZOLE 40 MG TABLET.DR. PO SCH (07:30)
[2020-08-30] MEDS ORDERED: ASPIRIN ENTERIC COATED 81 MG TABLET.DR. PO SCH (08:00)
== END 2020-08-29 18:35 | disposition home or self-care (01) ==
LOC: ER 02:18 → 2 SOUTH 04:41
PROVIDERS: ADMIT Internal Medicine; ATTEND Internal Medicine
DX: R07.89 Other chest pain (principal); I12.9 Hypertensive chronic kidney disease with stage 1 through stage 4 chronic kidney disease, or unspecified chronic kidney disease; N18.9 Chronic kidney disease, unspecified; E11.22 Type 2 diabetes mellitus with diabetic chronic kidney disease; K21.9 Gastro-esophageal reflux disease without esophagitis; M19.90 Unspecified osteoarthritis, unspecified site; E78.00 Pure hypercholesterolemia, unspecified; E83.42 Hypomagnesemia; E78.5 Hyperlipidemia, unspecified; Z79.82 Long term (current) use of aspirin; Z79.84 Long term (current) use of oral hypoglycemic drugs; Z90.49 Acquired absence of other specified parts of digestive tract; Z87.891 Personal history of nicotine dependence; Z68.36 Body mass index [BMI] 36.0-36.9, adult; Z79.899 Other long term (current) drug therapy; Z98.890 Other specified postprocedural states
CPT/HCPCS: 36415; 71045; 80053; 80061; 82962; 83036; 83690; 83735; 83880; 84443; 84484; 85025; 93005; 93306; 96365; 99285; G0378; J1815; J3475; G0379